=== PATIENT | female | born 1970 | race Caucasian/White ===

== ENCOUNTER 2017-07-01 23:34 | Emergency (ER) | payer SELFPAY ==
[~2017-07-01] VITALS: Ht 170.2 cm; Wt 66.0 kg
[2017-07-02] MEDS ORDERED: LORAZEPAM 2MG/ML CPJ IV STA (01:07)
[2017-07-02 01:39] LABS: BASOPHILS % 0.2 % (0.0-2.0); EOSINOPHILS % 1.3 % (0.0-5.0); HEMATOCRIT. 36.5 % (36.0-48.0); HEMOGLOBIN. 11.9 g/dL (12.0-16.0); LYMPHOCYTES % 35.2 % (20.0-50.0); MEAN CORPUSCULAR HEMOGLOBIN 27.2 pg (28.0-32.0); MEAN CORPUSCULAR VOLUME 83.6 fL (81.0-99.0); MEAN PLATELET VOLUME 8.6 fl (7.4-10.4); MONOCYTES % 6.3 % (2.0-8.0); PLATELET 268 x1000/uL (130-400); RED BLOOD CELL COUNT 4.37 mill/uL (4.2-5.4); RED CELL DISTRIBUTION WIDTH 22.2 % (11.6-14.6)
[2017-07-02 01:44] LABS: CHLORIDE 110 mEq/L (98-107)
[2017-07-02 01:45] LABS: HCG SCREEN NEGATIVE
[2017-07-02 01:55] LABS: PLATELET ESTIMATE NORMAL
[2017-07-02 02:00] LABS: CARBON DIOXIDE 24 mEq/L (21-32)
[2017-07-02 02:12] LABS: ETHANOL BLOOD 303 mg/dL
[2017-07-02 03:28] LABS: CLARITY URINE CLEAR (CLEAR); COLOR URINE YELLOW (YELLOW); GLUCOSE URINE NEGATIVE (NEGATIVE); KETONES URINE NEGATIVE (NEGATIVE); LEUKOCYTE ESTERASE URINE NEGATIVE (NEGATIVE); NITRITE URINE NEGATIVE (NEGATIVE); OCCULT BLOOD URINE NEGATIVE (NEGATIVE); PH URINE 6.5 (4.5-8.0); PROTEIN URINE NEGATIVE (NEGATIVE); SPECIFIC GRAVITY URINE 1.012 (1.005-1.030); UROBILINOGEN URINE 0.2 E.U./dL (0.2-1.0)
[2017-07-02 03:45] LABS: *AMPHETAMINES SCREEN URINE NEGATIVE (NEGATIVE); *BARBITURATES SCREEN URINE NEGATIVE (NEGATIVE); *BENZODIAZEPINES SCREEN URINE NEGATIVE (NEGATIVE); *COCAINE SCREEN URINE NEGATIVE (NEGATIVE); CANNABINOID URINE SCREEN NEGATIVE (NEGATIVE); METHADONE URINE SCREEN NEGATIVE (NEGATIVE); OPIATES URINE SCREEN NEGATIVE (NEGATIVE); PHENCYCLIDINE URINE SCREEN NEGATIVE (NEGATIVE)
[2017-07-02 07:11] VITALS: BP 103/71
== END 2017-07-02 07:58 | disposition home or self-care (01) ==
LOC: ER 23:34
DX: G31.2 Degeneration of nervous system due to alcohol (principal)
CPT/HCPCS: 36415; 80053; 80305; 80307; 80329; 81003; 81025; 84703; 85025; 96374; 99284; G0482; J2060; J7030; Z7610

== ENCOUNTER 2021-05-24 06:06 | Emergency (ER) | payer MEDICAID ==
[~2021-05-24] VITALS: Ht 154.9 cm; Wt 80.0 kg
[2021-05-24] MEDS ORDERED: HYDROCODONE/ACETAMINOPHEN 5/325MG TABLET PO ONE (08:00)
[2021-05-24] MEDS ORDERED: KETOROLAC 60MG/2ML VIAL IM ONE (08:00)
[2021-05-24] MEDS ORDERED: HYDR-4001 MT (08:40)
[2021-05-24] MEDS ORDERED: IBUP-2028 MT (08:40)
[2021-05-24 09:03] VITALS: BP 141/68
== END 2021-05-24 09:04 | disposition home or self-care (01) ==
LOC: ER 06:06
DX: M47.896 Other spondylosis, lumbar region (principal)
CPT/HCPCS: 72100; 96372; 99283; J1885